=== PATIENT | female | born 1950 | race African-American/Black ===

== ENCOUNTER 2017-02-27 11:52 | Emergency (ER) | payer MEDICARE, OTHER ==
[~2017-02-27 11:52] MED LIST: ACET500CAP PO; ASAB PO; CORICIDI1 PO; CRESTOR20 MG PO; FISH OIL PO; GLUCPH PO; HYZAAR 100/25 T1 TAB PO; LEVOTHYROXIN75 MCG PO; LOP100 PO; MOBIC7.5 PO; NORV10 PO; PROTONIX PO; REFRESH OPH; SODBICAR10 PO
[2017-02-27 13:02] LABS: BASOPHILS 0.6 %; BASOPHILS ABSOLUTE 0.03 10/3/uL (0.0-0.16); EOSINOPHILS 2.8 %; EOSINOPHILS ABSOLUTE 0.14 10/3/uL (0.0-0.53); ER CBC TAT 0 Hrs 09 Mins; HEMATOCRIT 43.9 % (36.0-48.0); HEMOGLOBIN 14.2 g/dL (12.0-16.0); IMMATURE GRANULOCYTES 0.2 %; IMMATURE GRANULOCYTES ABSOLUTE 0.01 10/3/uL (0.0-0.11); LYMPHOCYTES 36.5 %; LYMPHOCYTES ABSOLUTE 1.85 10/3/uL (0.67-4.30); MEAN CORPUS HGB CONC 32.3 g/dL (32.0-36.0); MEAN CORPUSCULAR HEMOGLOB 26.9 pg (26.0-34.0); MEAN CORPUSCULAR VOLUME 83.3 fL (80-100); MEAN PLATELET VOLUME 13.1 fL (9.2-13.0); MONOCYTES 9.9 %; NEUTROPHILS ABSOLUTE 2.54 10/3/uL (2.02-8.40); PLATELET COUNT 200 10/3/uL (150-400); RBC DISTRIBUTION WIDTH 15.9 % (12.0-16.0); RED CELL COUNT 5.27 10/6/uL (4.0-5.6); WHITE BLOOD CELLS 5.1 10/3/uL (4.5-10.5)
[2017-02-27 13:03] LABS: MANUAL DIFF NO %
[2017-02-27 13:10] LABS: INTERNATIONAL NORMAL RATI 1.1 UNITS (-); PARTIAL THROMBO TIME 27.7 SEC (22.5-37.2); PROTIME (NOT ORD) 14.1 SEC (12.0-14.5)
[2017-02-27 13:20] LABS: BUN (BLOOD UREA NITROGEN) 16 MG/DL (6-23); CALCIUM, SERUM 10.7 MG/DL (8.5-10.4); CHEST PAIN PROFILE TAT 0 Hrs 27 Mins; CHLORIDE, SERUM 110 MMOL/L (96-112); CO2 (CARBON DIOXIDE) 26 MMOL/L (24-34); CREATININE 1.01 MG/DL (0.55-1.02); GFR AFRICAN AMERICAN 66 ML/MIN (>=60); GFR NON AFRICAN AMERICAN 57 ML/MIN (>=60); GLUCOSE, SERUM 116 MG/DL (60-99); SODIUM, SERUM 142 MMOL/L (135-148); TROPONIN I <0.02 NG/ML (<0.05)
[2017-03-01] MEDS ORDERED: JARDI10T PO (04:28)
[2017-03-01] MEDS ORDERED: MEVACOR PO (04:28)
[2017-03-01] MEDS ORDERED: CATAPRES2 TOP (04:28)
[2017-03-01] MEDS ORDERED: LEVOTHYROXIN75 MCG PO (04:29)
[2017-03-01] MEDS ORDERED: SENSIPAR30 M1 PO (04:30)
[2017-03-01] MEDS ORDERED: SB325 PO (04:30)
[2017-03-01] MEDS ORDERED: ACET500CAP PO (04:31)
[2017-03-01] MEDS ORDERED: ICY HOT (04:32)
== END 2017-02-27 20:23 | disposition home or self-care (01) ==
LOC: ER 11:52
PROVIDERS: Emergency Medicine
DX: I10 Essential (primary) hypertension (principal); R51 Headache; E11.9 Type 2 diabetes mellitus without complications; E03.9 Hypothyroidism, unspecified; Z88.6 Allergy status to analgesic agent; Z79.899 Other long term (current) drug therapy
CPT/HCPCS: 70450; 71020; 80048; 83735; 84484; 85025; 85610; 85730; 93005; 96374; 99285; A9270-GY; J0360

== ENCOUNTER → 2017-03-01 05:22 | Emergency (ER) | payer MEDICARE, OTHER ==
[~2017-03-01 05:22] MED LIST changes: +CATAPRES2 TOP; +ICY HOT; +JARDI10T PO; +MEVACOR PO; +SB325 PO; +SENSIPAR30 M1 PO
== END | disposition home or self-care (01) ==
LOC: ER 05:22
DX: I12.9 Hypertensive chronic kidney disease with stage 1 through stage 4 chronic kidney disease, or unspecified chronic kidney disease (principal); N18.9 Chronic kidney disease, unspecified; E11.22 Type 2 diabetes mellitus with diabetic chronic kidney disease; Z79.899 Other long term (current) drug therapy; Z88.6 Allergy status to analgesic agent
CPT/HCPCS: 93005; 99283; J0360